=== PATIENT | female | born 1975 | race Caucasian/White ===

== ENCOUNTER 2017-08-18 13:45 | Emergency (ER) | payer OTHER ==
[2017-08-18 14:12] VITALS: BP 111/62; PULSE 74; TEMP 9932; BMI 25.7
--- NOTE | 2017-08-18 14:43 | PDOC ---
History of Present Illness - General Chief Complaint: Edema Stated Complaint: SWELLING RT SIDE OF HEAD Time Seen by Provider: 08/18/17 14:22 History Source: Patient Exam Limitations: No Limitations - History of Present Illness Initial Comments: 08/18/17 14:38 Patient is a [42-year-old female, denies any significant medical history presents with painful lesion to right lateral posterior scalp postauricular, no fever denies any lymph nodes palpable.] Past Medical History: [Denies]. Allergies: No known allergies Medications: [None] Family History: Non-contributory Social History: Denies smoking, alcohol use, or IVDU Review of Systems GENERAL/CONSTITUTIONAL: [No Fever and chills. No weakness. No weight change.] HEAD, EYES, EARS, NOSE AND THROAT: [No change in vision. No ear pain or discharge. No sore throat. ] CARDIOVASCULAR: [No chest pain or shortness of breath.] RESPIRATORY: [No cough, wheezing, or hemoptysis.] GASTROINTESTINAL: [No nausea, vomiting, diarrhea or constipation. No rectal bleeding.] GENITOURINARY: [No dysuria, frequency, or change in urination.] MUSCULOSKELETAL: [No joint or muscle swelling or pain. No neck or back pain.] SKIN : [No rash or easy bruising. Lesion to the right posterior scalp,right post auricular. ] NEUROLOGIC: [No headache, vertigo, loss of consciousness, or loss of sensation.] PSYCHIATRIC: [No depression or anxiety.] ENDOCRINE: [No increased thirst. No abnormal weight change.] HEMATOLOGIC/LYMPHATIC: [No anemia, easy bleeding, or history of blood clots.] ALLERGIC/IMMUNOLOGIC: [No hives or skin allergy. No latex allergy.] Physical Exam: GENERAL: [The patient is awake, alert, and fully oriented, in no acute distress. ] EYES: [Pupils equal, round and reactive to light, extraocular movements intact, sclera anicteric, conjunctiva clear.] ENT: [Ears normal, nares patent, oropharynx clear without exudates. Moist mucous membranes. No uvula deviation] NECK: [Normal range of motion, supple without lymphadenopathy, JVD, or masses.] LUNGS: [Breath sounds equal, clear to auscultation bilaterally. No wheezes, and no crackles.] HEART: [Regular rate and rhythm, normal S1 and S2 without murmur, rub or gallop. ] ABDOMEN: [Soft, nontender, normoactive bowel sounds. No guarding, no rebound. No masses. No bruising or abrasions] MUSCULOSKELETAL: [Normal range of motion, no edema. No clubbing or cyanosis. No cords, erythema, or tenderness. No CVA Tenderness with fist.] NEUROLOGICAL: [Cranial nerves II through XII grossly intact. Normal speech, normal gait.] SKIN: [Warm, Dry, normal turgor, no rashes. Crusted , painful Lesion to the right posterior scalp, left post auricular. ] 08/18/17 14:42 08/18/17 14:43 Past History - Past Medical History Allergies/Adverse Reactions: Allergies Allergy/AdvReac Type Severity Reaction Status Date / Time No Known Allergies Allergy Verified 08/18/17 14:06 Home Medications: Ambulatory Orders Sulfamethoxazole/Trimethoprim [Bactrim Ds -] 1 tab PO BID #20 tablet 08/18/17 CVA: No COPD: No DVT: No - Immunization History Immunization Up to Date: Yes - Suicide/Smoking/Psychosocial Hx Smoking History: Never smoked Have you smoked in the past 12 months: No Information on smoking cessation initiated: No Hx Alcohol Use: No Drug/Substance Use Hx: No Substance Use Type: None *Physical Exam - Vital Signs Last Vital Signs Temp Pulse Resp BP Pulse Ox 9932 F H 74 17 111/62 98 08/18/17 14:06 08/18/17 14:06 08/18/17 14:06 08/18/17 14:06 08/18/17 14:06 Medical Decision Making - Medical Decision Making 08/18/17 14:42 A/P: Patient here for evaluation of lesion right postauricular 08/18/17 14:42 I will discharge patient on Bactrim, follow-up with dermatology as advised patient to stop tanning she reports going frequently 1-2 times a week. Lesion is crusted, no drainage to send for culture. Motrin for pain. *DC/Admit/Observation/Transfer Diagnosis at time of Disposition: Skin lesion - Discharge Dispostion Disposition: HOME Condition at time of disposition: Stable Admit: No - Prescriptions Prescriptions: Sulfamethoxazole/Trimethoprim [Bactrim Ds -] 1 tab PO BID #20 tablet - Referrals Referrals: Chiki Donald MD [Primary Care Provider] - - Patient Instructions Additional Instructions: Warm soaks to area, recommend follow-up with dermatology as soon as possible refrain from rubbing or scratching area. No tanning until further follow-up with dermatology - Post Discharge Activity
== END 2017-08-18 14:47 | disposition home or self-care (01) ==
LOC: JERFT 13:45
DX: L98.8 Other specified disorders of the skin and subcutaneous tissue (principal)
CPT/HCPCS: 99281-25